=== PATIENT | male | born 1980 | race Caucasian/White ===

== ENCOUNTER 2016-12-19 00:57 | Emergency (ER) | payer SELFPAY ==
[~2016-12-19] VITALS: Ht 180.3 cm; Wt 100.2 kg
[~2016-12-19 00:57] MED LIST: METF500T PO
[2016-12-19] MEDS ORDERED: ACETAMINOPHEN 500 MG TAB PO STA (01:10)
[2016-12-19] MEDS ORDERED: OPTIRAY 320 IV PRN (01:15)
[2016-12-19 01:25] LABS: BASO % 0.4 %; BASO ABS # 0.03 K/uL (0-0.2); COMPLETE YES; EOS % 0.1 %; IG% 0.3 %; LYMPH % 7.9 %; MEAN CELL VOLUME 83.3 fL (80-100); MEAN PLATELET VOLUME 11.4 fL (7.4-10.4); MONO % 9.5 %; NEUT % 81.8 %; PLATELET COUNT 140 K/uL (130-400); RED BLOOD COUNT 5.64 M/uL (4.7-6.1); WHITE BLOOD COUNT 7.61 K/uL (4.8-10.8)
[2016-12-19 01:28] VITALS: Ht 180.3 cm; Wt 100.2 kg
[2016-12-19 01:29] VITALS: O2SAT 98
[2016-12-19 01:33] LABS: INR 1.2 (0.9-1.1); PARTIAL THROMBOPLASTIN RATIO 1.1; PROTHROMBIN TIME (PATIENT) 12.5 SECONDS (9.0-12.0)
[2016-12-19 01:42] LABS: URINE APPEARANCE CLEAR (CLEAR); URINE BILIRUBIN NEG (NEG); URINE COLOR YELLOW; URINE NITRITE NEG (NEG); URINE PH 6.5 (4.5-7.5); URINE SPECIFIC GRAVITY 1.007 (1.000-1.030); UROBILINOGEN POS (NEG); ZZUR CULT IF INDIC CLEAN CATCH NO
[2016-12-19 01:43] LABS: MANUAL MICROSCOPIC REQUIRED? NO; REVIEW REQ? NO
[2016-12-19 01:43] LABS: BUN/CREATININE RATIO 10.7 (10-20); CALCIUM 9.2 mg/dl (8.5-10.1); CREATININE 0.86 mg/dl (0.60-1.40); POTASSIUM 3.8 mmol/L (3.5-5.1)
[2016-12-19] MEDS ORDERED: MoRPHine SULFATE 4 MG/ML 1 ML CARP\\VIAL IV STA (02:37)
[2016-12-19] MEDS ORDERED: ONDANSETRON INJ 2 MG/ML 2 ML VIAL IV STA (02:37)
[2016-12-19] MEDS ORDERED: PANTOprazole SOD 40 MG TAB PO STA (03:11)
[2016-12-19] MEDS ORDERED: ONDANSETRON HOME PACK 4MG OD TAB PO ONE (03:15)
[2016-12-19] MEDS ORDERED: DICYCLOMINE HCL 10 MG/ML 2 ML AMP IM ONE (03:15)
[2016-12-19] MEDS ORDERED: BENTYL HOME PACK 10 MG VIAL PO ONE (03:15)
[2016-12-19] MEDS ORDERED: DICY10CA55 PO (03:15)
[2016-12-19] MEDS ORDERED: ONDA4TAB10 SL (03:15)
[2016-12-19] MEDS ORDERED: PANT40TA PO (03:21)
[2016-12-19 03:40] VITALS: BP 132/91; PULSE 106; TEMP 37.4; O2SAT 96
--- NOTE | 2016-12-19 05:42 | EMERGENCY ROOM VISIT NOTE ---
History First contact with patient: 01:00 Chief Complaint: FLU LIKE SX Stated Complaint: FLU SYMPTOMS History of Present Illness The patient is a 36 year old male who presents to the Emergency Room with complaints of nausea, occasional cough, lower abdominal cramping this objective fever and chills for the past day. Pain currently 7/10 to the lower abdomen. Nothing makes it better or worse. It does not radiate. Patient denies chest pain, dyspnea, headache, neck status, sore throat, vomiting, diarrhea, back pain , urinary symptoms. No history diverticulitis. Review of Systems See HPI for pertinent positives & negatives. A total of 10 systems reviewed and were otherwise negative. Past Medical/Surgical History Medical Problems: (1) Asthma (2) Diabetes Surgical Problems: (1) Hx of tonsillectomy Social History Smoking Status: Never Smoker Alcohol Use: heavy Drug Use: marijuana Marital Status: single Occupation Status: employed Current/Historical Medications Scheduled Dicyclomine Hcl (Bentyl), 10 MG PO Q8 Ondasetron Odt (Zofran Odt), 4 MG SL Q6H Pantoprazole (Protonix), 40 MG PO DAILY Physical Exam Vital Signs Date Time Temp Pulse Resp B/P (MAP) Pulse Ox O2 Delivery O2 Flow Rate FiO2 12/19/16 03:40 37.4 106 19 132/91 96 12/19/16 03:32 106 19 132/91 96 Room Air 12/19/16 03:09 37.4 12/19/16 02:36 92 20 122/64 96 Room Air 12/19/16 01:29 98 Room Air 12/19/16 01:03 101 12/19/16 01:00 37.7 105 18 154/89 99 Room Air Physical Exam VITALS: Vitals are noted on the nurse's note and reviewed by myself. Vital signs stable. GENERAL: Pleasant male, in no acute distress, nondiaphoretic, well-developed well-nourished. SKIN: The skin was without rashes, erythema, edema, or bruising. There is no tenting of the skin. Capillary reflex less than 2 seconds. HEAD: Normocephalic atraumatic. EARS: External auditory canals clear, tympanic membranes pearly guevara without erythema or effusion bilaterally. EYES: Pupils equal round and reactive to light and accommodation. Conjunctivae without injection, sclerae without icterus. Extraocular movements intact. NOSE: Patent, turbinates without inflammation or discharge. No sinus tenderness. MOUTH: Mucous membranes mildly dry. Pharynx without erythema or exudate. Uvula midline. Airway patent. Tongue does not deviate. NECK: Supple without nuchal rigidity. No lymphadenopathy. No thyromegaly. Cervical spine is nontender. No JVD. HEART: Regular rate and rhythm without murmurs gallops or rubs. LUNGS: Clear to auscultation bilaterally without wheezes, rales or rhonchi. No dullness to percussion. No retractions or accessory muscle use. ABDOMEN: Positive bowel sounds x 4. Normal tympanic percussion. Soft, tender to palpation lower abdomen, no CVA tenderness, without masses or organomegaly. Pagan sign negative. No guarding or rebound tenderness. MUSCULOSKELETAL: No muscle atrophy, erythema, or edema noted. NEURO: Patient was alert and oriented to person place and time. Normal sensation to light and sharp touch. No focal neurological deficits. Medical Decision & Procedures Laboratory Results 12/19/16 01:15 Red Blood Count 5.64, Mean Corpuscular Volume 83.3, Mean Corpuscular Hemoglobin 30.0, Mean Corpuscular Hemoglobin Concent 36.0, Mean Platelet Volume 11.4, Neutrophils (%) (Auto) 81.8, Lymphocytes (%) (Auto) 7.9, Monocytes (%) (Auto) 9.5, Eosinophils (%) (Auto) 0.1, Basophils (%) (Auto) 0.4, Neutrophils # (Auto) 6.23, Lymphocytes # (Auto) 0.60, Monocytes # (Auto) 0.72, Eosinophils # (Auto) 0.01, Basophils # (Auto) 0.03 12/19/16 01:15 Test 12/19/16 01:15 12/19/16 01:27 12/19/16 01:30 White Blood Count 7.61 K/uL (4.8-10.8) Red Blood Count 5.64 M/uL (4.7-6.1) Hemoglobin 16.9 g/dL (14.0-18.0) Hematocrit 47.0 % (42-52) Mean Corpuscular Volume 83.3 fL (80-100) Mean Corpuscular Hemoglobin 30.0 pg (25-34) Mean Corpuscular Hemoglobin Concent 36.0 g/dl (32-36) Platelet Count 140 K/uL (130-400) Mean Platelet Volume 11.4 fL (7.4-10.4) Neutrophils (%) (Auto) 81.8 % Lymphocytes (%) (Auto) 7.9 % Monocytes (%) (Auto) 9.5 % Eosinophils (%) (Auto) 0.1 % Basophils (%) (Auto) 0.4 % Neutrophils # (Auto) 6.23 K/uL (1.4-6.5) Lymphocytes # (Auto) 0.60 K/uL (1.2-3.4) Monocytes # (Auto) 0.72 K/uL (0.11-0.59) Eosinophils # (Auto) 0.01 K/uL (0-0.5) Basophils # (Auto) 0.03 K/uL (0-0.2) RDW Standard Deviation 36.4 fL (36.4-46.3) RDW Coefficient of Variation 12.0 % (11.5-14.5) Immature Granulocyte % (Auto) 0.3 % Immature Granulocyte # (Auto) 0.02 K/uL (0.00-0.02) Prothrombin Time 12.5 SECONDS (9.0-12.0) Prothromb Time International Ratio 1.2 (0.9-1.1) Activated Partial Thromboplast Time 28.3 SECONDS (21.0-31.0) Partial Thromboplastin Ratio 1.1 Anion Gap 12.0 mmol/L (3-11) Est Creatinine Clear Calc Drug Dose 143.2 ml/min Estimated GFR () 129.3 Estimated GFR (Non- 111.6 BUN/Creatinine Ratio 10.7 (10-20) Calcium Level 9.2 mg/dl (8.5-10.1) Total Bilirubin 1.6 mg/dl (0.2-1) Aspartate Amino Transf (AST/SGOT) 32 U/L (15-37) Alanine Aminotransferase (ALT/SGPT) 45 U/L (12-78) Alkaline Phosphatase 63 U/L (45-117) Total Protein 7.8 gm/dl (6.4-8.2) Albumin 3.8 gm/dl (3.4-5.0) Globulin 4.0 gm/dl (2.5-4.0) Albumin/Globulin Ratio 1.0 (0.9-2) Bedside Lactic Acid Venous 1.36 mmol/L (0.90-1.70) Urine Color YELLOW Urine Appearance CLEAR (CLEAR) Urine pH 6.5 (4.5-7.5) Urine Specific [place] 1.007 (1.000-1.030) Urine Protein NEG (NEG) Urine Glucose (UA) NEG (NEG) Urine Ketones 2+ (NEG) Urine Occult Blood NEG (NEG) Urine Nitrite NEG (NEG) Urine Bilirubin NEG (NEG) Urine Urobilinogen POS (NEG) Urine Leukocyte Esterase NEG (NEG) Urine WBC (Auto) 1-5 /hpf (0-5) Urine RBC (Auto) 0-4 /hpf (0-4) Urine Hyaline Casts (Auto) 0 /lpf (0-5) Urine Epithelial Cells (Auto) 5-10 /lpf (0-5) Urine Bacteria (Auto) NEG (NEG) Medications Administered Medications (Trade) Dose Ordered Sig/Ricarda Route Start Time Stop Time Status Last Admin Dose Admin Acetaminophen (Tylenol Tab) 1,000 mg NOW STAT PO 12/19/16 01:10 12/19/16 01:11 DC 12/19/16 01:59 1,000 MG Morphine Sulfate (MoRPHine SULFATE INJ) 4 mg NOW STAT IV 12/19/16 02:37 12/19/16 02:38 DC 12/19/16 02:41 4 MG Ondansetron HCl (Zofran Inj) 4 mg NOW STAT IV 12/19/16 02:37 12/19/16 02:38 DC 12/19/16 02:42 4 MG Dicyclomine HCl (Bentyl Inj) 20 mg NOW ONCE IM 12/19/16 03:15 12/19/16 03:16 DC 12/19/16 03:26 20 MG Dicyclomine HCl (Dicyclomine HCl 10MG Home Pack) 1 ea UD ONCE PO 12/19/16 03:15 12/19/16 03:16 DC 12/19/16 03:26 1 EA Ondansetron HCl (ZOFRAN ODT 4MG Home Pack) 1 homepack UD ONCE PO 12/19/16 03:15 12/19/16 03:16 DC 12/19/16 03:26 1 HOMEPACK Pantoprazole Sodium (Protonix Tab) 40 mg NOW STAT PO 12/19/16 03:11 12/19/16 03:13 DC 12/19/16 03:25 40 MG ED Course Prior records/ancillary studies reviewed. Triage Nursing notes reviewed. The patient's history was concerning for abdominal pain with subjective fevers. Differential diagnosis: Etiologies such as appendicitis, diverticulitis, PUD, biliary pathology, UTI, pancreatitis, obstruction, mesenteric ischemia, aortic pathology, infections, inflammatory bowel disease, renal colic, as well as others were entertained. Physical examination findings: As above. ER treatment provided: Zofran, morphine, Bentyl On reassessment the patient felt better. Diagnostics interpreted by me: The labs revealed no leukocytosis. hyperglycemia without DKA Imaging studies: Chest x-ray with no acute consolidation, pneumothorax or free air per my interpretation Abdominal pelvic CT concerning for enteritis per stat radiology Exam and history seem consistent with early enteritis. Patient had subjective fever and chills. It is slightly elevated temperature in the ER. He was tolerating fluids. He felt much better after being medicated as above. He did not have an acute abdomen on exam. He was advised take medications as directed and to follow-up with family care in a few days or here in the ER sooner for abdominal pain, fevers, vomiting, worsening signs or symptoms or as needed. By the evaluation outlined above emergent etiologies such as appendicitis, diverticulitis, PUD, biliary pathology, UTI, pancreatitis, obstruction, mesenteric ischemia, aortic pathology, inflammatory bowel disease, renal colic , as well as others were deemed relatively unlikely. The pt informed about the findings as listed above. All questions were answered and pleased with the treatment. Return instructions were outlined and the patient was discharged in stable condition. Outpatient prescription management: Zofran, Bentyl Referral: The patient was referred back to their primary care physician for follow-up in 2 to 3 days for a recheck of the current condition. Case reviewed with my attending Medical Decision As above Medication Reconcilliation Current Medication List: was personally reviewed by me Blood Pressure Screening Patient's blood pressure: Normal blood pressure Impression Primary Impression: Enteritis Departure Information Dispostion Home / Self-Care Condition GOOD Prescriptions Pantoprazole (Protonix) 40 Mg Tab 40 MG PO DAILY for 14 Days, #14 TAB Prov: Chelsie Angulo .NILAM 12/19/16 Ondasetron Odt (ZOFRAN ODT) 4 Mg Tab 4 MG SL Q6H, #10 TAB Prov: Chelsie Angulo .NILAM 12/19/16 Dicyclomine Hcl (BENTYL) 10 Mg Cap 10 MG PO Q8, #14 CAP Prov: Chelsie Angulo .NILAM 12/19/16 Forms HOME CARE DOCUMENTATION FORM, Work Instructions, Return To Work: 2 days IMPORTANT VISIT INFORMATION Patient Instructions My [facility], ED Gastroenteritis Non Infec Additional Instructions Protonix 40 m tablet daily for next 2 weeks. Take this on an empty stomach. Zofran 4 m tablet every 6 hours as needed for nausea and vomiting. Bentyl 10 m tablet every 8 hours as needed for abdominal cramping. Try Maalox or Zantac for breakthrough symptoms for reflux. Avoid large meals. Avoid acidic foods. Rest and drink plenty of fluids as tolerated. Continue current medications. Avoid strenuous activities and anything that worsens your pain. Resume normal activities once your symptoms resolve. Return to the ER immediately for worsening or persistent chest pain, abdominal pain, black or blood in your stools, vomiting, fevers, chest pains, difficulty breathing, worsening of your condition, or as needed. Follow up with your primary physician in 2-3 days for a recheck of your current condition. Work Instructions Return To Work: 2 days
--- NOTE | 2016-12-19 06:33 | DIAGNOSTIC IMAGING REPORT ---
CHEST ONE VIEW PORTABLE CLINICAL HISTORY: cough/fever pain COMPARISON STUDY: No previous studies for comparison. FINDINGS: The bones soft tissues and hemidiaphragms are normal. The cardiomediastinal silhouette is normal. The lungs are clear. The pulmonary vasculature is normal. IMPRESSION: Negative chest. The above report was generated using voice recognition software. It may contain grammatical, syntax or spelling errors. Electronically signed by: Lopez Hurtado M.D. 12/19/2016 6:32 AM Dictated Date/Time: 12/19/2016 6:32 AM
--- NOTE | 2016-12-19 07:17 | DIAGNOSTIC IMAGING REPORT ---
ABD/PELVIS IV CONTRAST ONLY CT DOSE: 676.02 mGy.cm HISTORY: Pain fever/lower abd pain TECHNIQUE: Multiaxial CT images of the abdomen and pelvis were performed following the use of intravenous contrast. A dose lowering technique was utilized adhering to the principles of ALARA. COMPARISON STUDY: None. FINDINGS: The lung bases are clear. The liver, spleen, gallbladder, pancreas, kidneys, and adrenal glands are within normal limits. No bowel wall thickening or obstruction. The pelvic organs are unremarkable. No suspicious lytic or blastic osseous lesions. The appendix is normal. Several reactive mesenteric and apparent nodes. Normal appendix. Nonobstructive bowel pattern. IMPRESSION: 1. Normal appendix. 2. Mild mesenteric adenitis. The above report was generated using voice recognition software. It may contain grammatical, syntax or spelling errors. Electronically signed by: Lopez Hurtado M.D. 12/19/2016 7:15 AM Dictated Date/Time: 12/19/2016 7:15 AM
== END 2016-12-19 03:40 | disposition home or self-care (01) ==
LOC: EDBD 00:57 → C.EDA 00:58
DX: K52.9 Noninfective gastroenteritis and colitis, unspecified (principal); J45.909 Unspecified asthma, uncomplicated; E11.9 Type 2 diabetes mellitus without complications; F10.99 Alcohol use, unspecified with unspecified alcohol-induced disorder; F12.90 Cannabis use, unspecified, uncomplicated

== ENCOUNTER 2016-12-25 20:20 | Emergency (ER) | payer SELFPAY ==
[~2016-12-25] VITALS: Ht 180.3 cm; Wt 86.8 kg
[~2016-12-25 20:20] MED LIST changes: +DICY10CA55 PO; -METF500T PO; +ONDA4TAB10 SL; +PANT40TA PO
[2016-12-25] MEDS ORDERED: CEFTRIAXONE SOD INJ 1 GM ADDVIAL IV STA (20:51)
[2016-12-25] MEDS ORDERED: KETOROLAC TROMETHAMINE 30 MG/ML VIAL IV STA (20:51)
[2016-12-25] MEDS ORDERED: SODIUM CHLORIDE 0.9% 1000ML 1,000 ML IV STA (20:51)
[2016-12-25] MEDS ORDERED: DOXYCYCLINE HYCLATE 100 MG CAP PO ONE (21:00)
[2016-12-25 21:13] VITALS: O2SAT 96; Ht 180.3 cm; Wt 86.8 kg
[2016-12-25 21:23] LABS: BASO % 0.7 %; BASO ABS # 0.05 K/uL (0-0.2); COMPLETE YES; EOS % 1.2 %; HEMATOCRIT 37.9 % (42-52); IG% 0.6 %; LYMPH % 12.3 %; LYMPH ABS # 0.84 K/uL (1.2-3.4); MEAN CORPUSCULAR HGB CONC 34.6 g/dl (32-36); MEAN PLATELET VOLUME 10.4 fL (7.4-10.4); MONO % 9.1 %; NEUT % 76.1 %; PLATELET COUNT 257 K/uL (130-400); RED BLOOD COUNT 4.51 M/uL (4.7-6.1); WHITE BLOOD COUNT 6.82 K/uL (4.8-10.8)
--- NOTE | 2016-12-25 21:27 | EMERGENCY ROOM VISIT NOTE ---
History Report prepared by Jaclyn: Antonia Flores Under the Supervision of: Dr. Haresh Cagle M.D. First contact with patient: 20:38 Chief Complaint: ILLNESS Stated Complaint: WEAK, DIZZY, BLURRED VISION, CHILLS History of Present Illness The patient is a 36 year old male who presents to the Emergency Room with complaints of worsening illness starting a few hours ago. The patient states that he was here a week ago and was diagnosed with Enteritis. He states that he had diarrhea and vomiting. He reports that he felt fine the past two days. He states that when he went to work tonight, he became dizzy. He states that his vision became blurry and he became weak. 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 He denies eating anything today. The patient complains of a rash on his chest, neck tenderness, and tenderness to the back of his head. He notes that he has an indoor/outdoor cat. Source of History: patient Onset: a few hours ago Position: other (global) Quality: other (global) Timing: worsening Associated Symptoms: + neck pain, + weakness, + rash Note: The patient complains of dizziness, blurry vision, and tenderness to the neck of his head. Review of Systems See HPI for pertinent positives & negatives. A total of 10 systems reviewed and were otherwise negative. Past Medical & Surgical Medical Problems: (1) Asthma (2) Diabetes Surgical Problems: (1) Hx of tonsillectomy Family History Patient reports no known family medical history. Social History Smoking Status: Former Smoker Alcohol Use: heavy Drug Use: marijuana Marital Status: single Housing Status: lives alone Occupation Status: employed Current/Historical Medications Scheduled Dicyclomine Hcl (Bentyl), 10 MG PO Q8 Doxycycline Monohydrate (Monodox), 100 MG PO BID Ondasetron Odt (Zofran Odt), 4 MG SL Q6H Pantoprazole (Protonix), 40 MG PO DAILY Allergies Coded Allergies: No Known Allergies (Unverified , 12/25/16) Physical Exam Vital Signs Date Time Temp Pulse Resp B/P (MAP) Pulse Ox O2 Delivery O2 Flow Rate FiO2 12/25/16 22:32 36.9 89 18 152/91 98 12/25/16 21:39 89 12/25/16 21:31 89 18 147/83 98 Room Air 85 147/88 89 152/91 12/25/16 21:13 96 Room Air 12/25/16 21:13 96 Room Air 12/25/16 20:23 36.9 103 20 128/82 96 Room Air Physical Exam GENERAL: Patient is a healthy-appearing well-nourished HEAD: Normocephalic atraumatic EYES: Ocular movements intact pupils equal and react to light OROPHARYNX mucous membranes are moist no exudates present no erythema or edema present NECK: Supple no nuchal rigidity CHEST: Good equal expansion LUNGS: Clear and equal to auscultation CARDIAC: Normal S1 and S2 ABDOMEN: Soft nontender no guarding BACK: No CVA tenderness EXTREMITIES: No pain upon palpation normal muscle strength in all groups no clubbing cyanosis or edema SKIN: Rash consistent with erythema migrants on his left chest wall. NEURO: Patient is following commands and answering questions appropriately. Alert and oriented x3 Cranial Nerves 2-12 grossly intact Medical Decision & Procedures Laboratory Results 12/25/16 21:07 Red Blood Count 4.51, Mean Corpuscular Volume 84.0, Mean Corpuscular Hemoglobin 29.0, Mean Corpuscular Hemoglobin Concent 34.6, Mean Platelet Volume 10.4, Neutrophils (%) (Auto) 76.1, Lymphocytes (%) (Auto) 12.3, Monocytes (%) (Auto) 9.1, Eosinophils (%) (Auto) 1.2, Basophils (%) (Auto) 0.7, Neutrophils # (Auto) 5.19, Lymphocytes # (Auto) 0.84, Monocytes # (Auto) 0.62, Eosinophils # (Auto) 0.08, Basophils # (Auto) 0.05 12/25/16 21:07 Test 12/25/16 20:58 12/25/16 21:07 Bedside Glucose 159 mg/dl (70-99) White Blood Count 6.82 K/uL (4.8-10.8) Red Blood Count 4.51 M/uL (4.7-6.1) Hemoglobin 13.1 g/dL (14.0-18.0) Hematocrit 37.9 % (42-52) Mean Corpuscular Volume 84.0 fL (80-100) Mean Corpuscular Hemoglobin 29.0 pg (25-34) Mean Corpuscular Hemoglobin Concent 34.6 g/dl (32-36) Platelet Count 257 K/uL (130-400) Mean Platelet Volume 10.4 fL (7.4-10.4) Neutrophils (%) (Auto) 76.1 % Lymphocytes (%) (Auto) 12.3 % Monocytes (%) (Auto) 9.1 % Eosinophils (%) (Auto) 1.2 % Basophils (%) (Auto) 0.7 % Neutrophils # (Auto) 5.19 K/uL (1.4-6.5) Lymphocytes # (Auto) 0.84 K/uL (1.2-3.4) Monocytes # (Auto) 0.62 K/uL (0.11-0.59) Eosinophils # (Auto) 0.08 K/uL (0-0.5) Basophils # (Auto) 0.05 K/uL (0-0.2) RDW Standard Deviation 37.2 fL (36.4-46.3) RDW Coefficient of Variation 12.2 % (11.5-14.5) Immature Granulocyte % (Auto) 0.6 % Immature Granulocyte # (Auto) 0.04 K/uL (0.00-0.02) Anion Gap 11.0 mmol/L (3-11) Est Creatinine Clear Calc Drug Dose 151.0 ml/min Estimated GFR () 139.1 Estimated GFR (Non- 120.0 BUN/Creatinine Ratio 12.9 (10-20) Calcium Level 9.2 mg/dl (8.5-10.1) Total Bilirubin 0.9 mg/dl (0.2-1) Direct Bilirubin 0.3 mg/dl (0-0.2) Aspartate Amino Transf (AST/SGOT) 56 U/L (15-37) Alanine Aminotransferase (ALT/SGPT) 132 U/L (12-78) Alkaline Phosphatase 110 U/L (45-117) Total Protein 7.4 gm/dl (6.4-8.2) Albumin 3.6 gm/dl (3.4-5.0) Thyroid Stimulating Hormone (TSH) 1.680 uIu/ml (0.300-4.500) Lyme Disease IgG Antibody POS (NEG) Labs reviewed by ED physician. Medications Administered Medications (Trade) Dose Ordered Sig/Ricarda Route Start Time Stop Time Status Last Admin Dose Admin Sodium Chloride 1,000 ml @ 999 mls/hr Q1H1M STAT IV 11/16/17 20:51 12/25/16 21:51 DC 12/25/16 21:30 999 MLS/HR Ceftriaxone Sodium (Rocephin Inj) 2 gm NOW STAT IV 12/25/16 20:51 12/25/16 20:53 DC 12/25/16 21:31 2 GM Doxycycline Hyclate (Vibramycin Cap) 100 mg ONE ONCE PO 12/25/16 21:00 12/25/16 21:01 DC 12/25/16 21:31 100 MG Ketorolac Tromethamine (Toradol Inj) 30 mg NOW STAT IV 12/25/16 20:51 12/25/16 20:53 DC 12/25/16 21:31 30 MG ECG Indication: weakness Rate (beats per minute): 87 Rhythm: normal sinus Findings: no acute ischemic change, no ectopy ED Course 2045: Past medical records reviewed. The patient was evaluated in room C7. A complete history and physical examination was performed. 2050: Ordered Toradol Inj 30 mg IV, Rocephin Inj 2 gm IV, NSS 1000 ml @ 999 mls/ hr IV. 2099: Ordered Vibramycin Cap 100 mg PO. 2231: Upon reexamination the patient is resting comfortably. I discussed results and treatment plan with the patient. He verbalizes agreement and understanding. The patient is ready for discharge. Medical Decision Etiologies such as vasovagal event, infection, hypoglycemia, electrolyte abnormalities, cardiac sources, intracerebral event, toxicologic, neurologic, as well as others were entertained. This is a 36-year-old male who presents emergency department with a near syncopal episode at work. In addition the patient has a large rash to the left side of his chest that appears to be consistent with erythema migrans. For this reason IV was established, patient given normal saline bolus 2 g of Rocephin and started on doxycycline. A Lyme titer was drawn it is grossly positive. The patient has a normal CBC normal renal profile. Based on these findings I felt that the patient can be safely discharged home for follow-up this primary care physician. Patient was in agreement with the treatment plan. Medication Reconcilliation Current Medication List: was personally reviewed by me Blood Pressure Screening Patient's blood pressure: Elevated blood pressure Blood pressure disposition: Elevated BP felt to be situational Impression Primary Impression: Erythema migrans (Lyme disease) Scribe Attestation The scribe's documentation has been prepared under my direction and personally reviewed by me in its entirety. I confirm that the note above accurately reflects all work, treatment, procedures, and medical decision making performed by me. Departure Information Dispostion Home / Self-Care Prescriptions Doxycycline Monohydrate (Monodox) 100 Mg Cap 100 MG PO BID for 14 Days, #28 CAP Prov: Haresh Cagle MD 12/25/16 Referrals No Doctor, Assigned (PCP) Forms HOME CARE DOCUMENTATION FORM, IMPORTANT VISIT INFORMATION, WORK / SCHOOL INSTRUCTIONS Patient Instructions My [facility] Additional Instructions Increase fluids next 48 hours Culture results are usually available in approx 48 hours You have been examined and treated today on an emergency basis only. This is not a substitute for, or an effort to provide, complete comprehensive medical care. It is impossible to recognize and treat all injuries or illnesses in a single emergency department visit. It is therefore important that you follow up closely with your PCP. Call as soon as possible for an appointment. Thank you for your time and consideration. I look forward to speaking with you again soon. Please don't hesitate to call us if you have any questions.
[2016-12-25 21:42] LABS: BUN/CREATININE RATIO 12.9 (10-20); CALCIUM 9.2 mg/dl (8.5-10.1); CREATININE 0.72 mg/dl (0.60-1.40); POTASSIUM 3.7 mmol/L (3.5-5.1)
[2016-12-25 21:52] LABS: THYROID STIMULATING HORMONE 1.68 uIu/ml (0.300-4.500)
[2016-12-25 22:20] LABS: LYME DISEASE AB IGG POS (NEG); LYME DISEASE AB IGM POS (NEG)
[2016-12-25] MEDS ORDERED: DOXY100C76 PO (22:25)
[2016-12-25 22:32] VITALS: BP 152/91; PULSE 89; TEMP 36.9; O2SAT 98
[2016-12-27 18:35] LABS: EHRLICHIA CHAFF IGG AB <1:64 (<1:64); EHRLICHIA CHAFF IGM AB <1:20 (<1:20)
== END 2016-12-25 22:33 | disposition home or self-care (01) ==
LOC: C.EDB 20:21 → C.EDC 22:33
DX: A26.0 Cutaneous erysipeloid (principal); A69.20 Lyme disease, unspecified; J45.909 Unspecified asthma, uncomplicated; E11.9 Type 2 diabetes mellitus without complications; F10.10 Alcohol abuse, uncomplicated; F12.10 Cannabis abuse, uncomplicated; Z87.891 Personal history of nicotine dependence